=== PATIENT | female | born 1985 | race Caucasian/White ===

== ENCOUNTER 2021-01-17 04:36 | Emergency (ER) | payer MEDICAID ==
[~2021-01-17] VITALS: Ht 170.2 cm; Wt 165.0 kg
--- NOTE | 2021-01-17 04:48 | NUR ---
pt bib [facility] for buring chest pain in upper center/right chest. ekg done, pt in gown, resting on gurney and placed on continuous monitoring.
[2021-01-17 05:34] VITALS: BP 151/88
[2021-01-17] MEDS ORDERED: FAMOTIDINE 20 MG TABLET ONE (05:48)
--- NOTE | 2021-01-17 05:56 | NUR ---
Patient/Caregiver given discharge instructions and they have confirmed that they understand the instructions. Patient ambulatory with steady gait.
[2021-01-17] MEDS ORDERED: FAMOTIDINE 20 MG TABLET PO ONE (06:00)
== END 2021-01-17 05:58 | disposition home or self-care (01) ==
LOC: ED 05:00
DX: K21.9 Gastro-esophageal reflux disease without esophagitis (principal); R07.89 Other chest pain
CPT/HCPCS: 93005; 99283